=== PATIENT | male | born 1935 | race Caucasian/White ===

== ENCOUNTER 2020-06-04 14:05 | Emergency (ER) | payer OTHER ==
[~2020-06-04] VITALS: Ht 180.3 cm; Wt 68.0 kg
--- NOTE | 2020-06-04 14:13 | NUR ---
BIB [facility], and situated to room and bed. Sitting on semifowler's position, complaining of generalized weakness. Denies pain, shortness of breath, or chest pain or discomfort. Stated that we fell from bed, and was unable to get up. Lives with and no other individuals. Has social support. Patient made comfortable. 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
--- NOTE | 2020-06-04 14:28 | NUR ---
Dr. Vinson is at bedside for physical examination. Responding appropriately.
[2020-06-04] MEDS ORDERED: LORAZEPAM 2 MG/1 ML VIAL IV ONE (14:45)
[2020-06-04] MEDS ORDERED: IV NORMAL SALINE 1000 ML BAG IV ONE (14:45)
[2020-06-04 15:46] LABS: BASOPHILS % (AUTO) 0.3 % (0.0-2.0); EOSINOPHILS % (AUTO) 0.7 % (0.0-7.0); HEMATOCRIT 38.5 % (36.7-47.1); HEMOGLOBIN 12.9 g/dL (12.5-16.3); LYMPHOCYTES # (AUTO) 1.1 K/uL (20.0-40.0); LYMPHOCYTES % (AUTO) 20.7 % (20.5-51.5); MEAN CORPUSCULAR HEMOGLOBIN 31.6 uug (23.8-33.4); MEAN CORPUSCULAR HGB CONC 33 g/dL (32.5-36.3); MEAN CORPUSCULAR VOLUME 94.4 fL (73.0-96.2); MONOCYTES # (AUTO) 0.4 K/uL (2.0-10.0); MONOCYTES % (AUTO) 8.4 % (0.0-11.0); NEUTROPHILS # (AUTO) 3.7 K/uL (1.8-8.9); NEUTROPHILS % (AUTO) 69.9 % (38.5-71.5); PLATELET COUNT (AUTO) 176 K/uL (152-348); RED BLOOD CELL COUNT(AUTO) 4.07 MIL/uL (4.06-5.63); WHITE BLOOD COUNT (AUTO) 5.3 K/uL (3.6-10.2)
[2020-06-04] MEDS ORDERED: LORAZEPAM 2 MG/1 ML VIAL ONE (15:50)
[2020-06-04 15:55] LABS: CREATININE 0.9 mg/dL (0.6-1.3); POTASSIUM 4.5 mmol/L (3.5-5.1)
[2020-06-04 16:08] LABS: BILIRUBIN,DIRECT 0.2 mg/dL (0.0-0.2); BILIRUBIN,TOTAL 0.8 mg/dL (0.2-1.0); TOTAL PROTEIN, SERUM 6.3 g/dL (6.4-8.2)
[2020-06-04 18:25] LABS: *BILIRUBIN,URIN 1+ (NEGATIVE); *BLOOD, URINE NEGATIVE (NEGATIVE); *CLARITY,URINE CLEAR (CLEAR); *COLOR,URINE YELLOW (YELLOW); *KETONES,URINE 1+ (NEGATIVE); *UROBILINOGEN,URINE 0.2 E.U./dl (NORMAL); LEUKOCYTE ESTERASE ,URINE NEGATIVE (NEGATIVE); NITRITE, URINE NEGATIVE (NEGATIVE); PH,URINE 5.5 (5.0-8.0); UGLUCOSE NEGATIVE (NEGATIVE)
--- NOTE | 2020-06-04 19:09 | NUR ---
Assumed care of patient. No acute distress noted. VSS
--- NOTE | 2020-06-04 21:42 | NUR ---
Patient in bed, no acute distress noted. VSS
--- NOTE | 2020-06-04 22:06 | NUR ---
[facility]
--- NOTE | 2020-06-04 22:30 | NUR ---
Patient accepted by Dr Pena at [facility], patient awaiting transfer information
--- NOTE | 2020-06-04 23:13 | NUR ---
pATIENT IN BED, AWAITING [facility] PLACEMENT
--- NOTE | 2020-06-04 23:24 | NUR ---
rEPORT TO STEVEN GATICA AT [facility]
--- NOTE | 2020-06-04 23:47 | NUR ---
[facility] unit 130 at bedside, patient transported ALS to [facility]. Report/chart/belongings/emtala forms given to [employer] Vincent.
== END 2020-06-04 23:48 | disposition short-term general hospital (02) ==
LOC: ER 14:05
DX: R53.1 Weakness (principal); G62.9 Polyneuropathy, unspecified; Z20.828 Contact with and (suspected) exposure to other viral communicable diseases; G31.9 Degenerative disease of nervous system, unspecified; I67.2 Cerebral atherosclerosis
CPT/HCPCS: 36415; 70450; 71045; 80048; 80076; 81003; 83605; 83880; 84443; 84484; 85025; 85730; 87040 ×2; 87086; 87426; 93005; 96360; 96361; 96374; 99285; J2060; 70030-TC; A4663; J7030